=== PATIENT | male | born 2000 | race Hispanic/Latino ===

== ENCOUNTER 2021-11-06 17:03 | Emergency (ER) | payer OTHER ==
[~2021-11-06] VITALS: Ht 188 cm; Wt 72.6 kg
[2021-11-06] MEDS ORDERED: NAPROSYN500 MG PO (19:18)
== END 2021-11-06 19:51 | disposition home or self-care (01) ==
LOC: ER 17:24
DX: M25.421 Effusion, right elbow (principal); M70.31 Other bursitis of elbow, right elbow; F17.210 Nicotine dependence, cigarettes, uncomplicated
CPT/HCPCS: 99283